=== PATIENT | female | born 1970 | race Caucasian/White ===

== ENCOUNTER 2020-10-03 08:55 | Day surgery (SDC) | payer BC ==
--- NOTE | 2020-09-28 13:18 | RAD REPORT ---
EXAM DESCRIPTION: Bishnu Finnegan (2 Views)09/28/2020 12:59 pm CLINICAL HISTORY: Preop for genitourinary surgery COMPARISON: None FINDINGS: The lungs appear clear of acute infiltrate. The heart is normal size IMPRESSION: No acute abnormalities displayed
[2020-09-28 13:32] LABS: Protime INR 1.07
[2020-09-28 13:33] LABS: Absolute Lymphocytes (CBC) 2.1 K/uL (0.7-4.9); Basophils % 0.9 % (0-1.3); Hematocrit 39.5 % (36.0-45.0); Lymphocytes % 22.5 % (15.3-44.8); MPV 7.5 fL (7.6-11.3); RBC Red Blood Cell Count 4.43 M/uL (3.86-4.86)
[2020-09-28 13:34] LABS: Potassium 3.8 mmol/L (3.5-5.1)
--- NOTE | 2020-10-01 07:50 | EKG ---
Test Date: 2020-09-28 Test Time: 12:27:18 Recyclable Products Sorter: TERENCE MEASUREMENT RESULTS: Intervals: Rate: 70 MT: 160 QRSD: 68 QT: 388 QTc: 419 Grimes: P: 72 MT: 160 QRS: 59 T: 65 INTERPRETIVE STATEMENTS: Normal sinus rhythm Normal ECG No previous ECG available for comparison Electronically Signed On 10-01-20 07:42:06 CANE WEIGHER HELPER by Tariq Barrios
[~2020-10-03 08:55] MED LIST: AMPICILLIN SODIUM 2 GM in NA CHLORIDE 0.9% 100 ML IVPB ONE; Gentamicin Inj 160 MG in NA CHLORIDE 0.9% 100 ML IV ONE
[2020-10-03 09:28] LABS: Specific Gravity 1.015 (1.005-1.030)
[2020-10-03] MEDS ORDERED: Ringers Lactate 1,000 ML IV ONE (09:46)
[2020-10-03] MEDS ORDERED: propofoL 200 MG/20 ML VIAL IV ONE (10:24)
[2020-10-03] MEDS ORDERED: dexAMETHasone 10 MG/ML VIAL ONE (10:25)
[2020-10-03] MEDS ORDERED: KETOROLAC 30 MG/ML INJ ONE (10:25)
[2020-10-03] MEDS ORDERED: MIDAZOLAM HCL 2 MG/2 ML INJ ONE (10:25)
[2020-10-03] MEDS ORDERED: LIDOCAINE 1% MPF 5 ML VIAL ONE (10:25)
[2020-10-03] MEDS ORDERED: FENTANYL CITR 100 MCG/2 ML ONE (10:25)
[2020-10-03] MEDS ORDERED: ONDANSETRON 4 MG/2 ML VIAL ONE (10:26)
[2020-10-03] MEDS ORDERED: ROCURONIUM 50 MG/5 ML VIAL IV ONE (12:50)
[2020-10-03] MEDS ORDERED: Mastisol Adhesive Liq ONE (13:21)
[2020-10-03] MEDS ORDERED: NEOSTIGMINE 1 MG/ML -5 ML ONE (13:26)
[2020-10-03] MEDS ORDERED: GLYCOPYRROLATE 0.2 MG/ML SYR ONE (13:26)
--- NOTE | 2020-10-03 13:35 | RAD REPORT ---
EXAM DESCRIPTION: RAD - Urethrocystogrphy Retrograde - 10/03/2020 1:18 pm CLINICAL HISTORY: STENT PLACEMENT RIGHT COMPARISON: No comparisons FINDINGS: Total fluoro time: 0.07 minutes
[2020-10-03] MEDS ORDERED: HYDROCODONE/APAP 5/325 MG TAB PO ONE (14:35)
[2020-10-03] MEDS ORDERED: HYDROCODONE/APAP 5/325 MG TAB ONE (14:47)
[2020-10-03 15:20] VITALS: BP 110/68; TEMP 97.6; O2SAT 99
--- NOTE | 2020-10-04 01:16 | OP ---
Surgeon: IRMA IBRAHIM Preoperative Diagnosis: 5 mm proximal right ureteral calculus. Postoperative Diagnosis: 5 mm proximal right ureteral calculus. Principal Procedure: Cystoscopy, right retrograde pyelography, right ureteroscopy and laser lithotri psy, right ureteral stent exchange. Indication For Procedure: Ms. Randall was seen at an outside facility with renal colic and underw ent placement of a right ureteral stent. The stone was observed to be proximal in her ureter on a CT scan. She presented for evaluation and management which was determined in the office to be a need f or ureteroscopy and laser lithotripsy. Procedure Note: The patient was consented in the preoperative holding area before being transferred to the operative suite where general anesthesia was induced. She was given ampicillin and gentamicin , IV antimicrobial prophylaxis, and pneumo boots were provided for DVT prophylaxis. She was placed i n the lithotomy position, padded and secured to the table appropriately. Her genitalia were prepped using Hibiclens, and she was draped in standard fashion. The case was begun using a 22-Anguillan rigid cystoscope to traverse the urethra and into the bladder with ease. There were significant intravesic al debris which was evacuated from the bladder. I then irrigated the bladder gently to remove any ad ditional debris and I verified the preoperative urine culture from 5 days ago was negative for infect ion. After decompressing the bladder, the stent was visualized and was without significant encrustat ion or sign of colonization with a fibrinous coating suggestive of active infection. As such, I used a flexible grasper to deliver a stent outside the meatus and passed a Sensor Wire up the stent and i nto the collecting system with a coil observed fluoroscopically there on the right side. Over the in dwelling Sensor Wire, I placed a dual-lumen catheter into the mid proximal ureter with ease, and a re trograde pyelogram was then performed. Right retrograde pyelography: Using a 70:30 mixture of Omnipaque and saline, contrast was injected v ia the second lumen of the dual-lumen catheter and did delineate the renal pelvis and the calyces wit h ease. The proximal ureter was also easily delineated as the tip of the catheter was in the mid pro ximal ureter. I thus passed a noodls guidewire via the second lumen of the dual-lumen catheter and it did coil alongside the indwelling safety wire within the upper pole of the kidney. I then removed the dual-lumen access catheter and placed a flexible ureteroscope into the upper pole with ease. I then carefully surveyed each of the calyces of the kidney in depth until I encountered the prior 5 mm proximal ureteral calculus, now displaced into the renal pelvis. Then, using a 200 nm laser fiber a t a power setting of 0.8 J and 15 Hz, the stone was quickly fragmented into dust smaller than 1 mm an d approximately the size of the laser fiber. Once this was done, I then surveyed the remainder of th e renal pelvis for any residual stone fragments and then backed the ureteroscope into the proximal ur eter. I then surveyed from the proximal down the mid and into the distal ureter before the ureterosc ope was completely extracted. With no additional stone fragments noted, the ureteroscopy portion of the case was discontinued and I replaced the 22-Anguillan rigid cystoscope by backloading it over the in dwelling safety wire. Over the indwelling safety wire, I passed a 6-Anguillan x 24 cm double-J right ur eteral stent into upper pole of the kidney with a coil observed fluoroscopically there and an additio nal coil cystoscopically within the bladder. I then decompressed her bladder fluid and urine, and th e patient was then awakened from general anesthesia. She was then transferred to a stretcher and to the recovery room in good condition. Complications: None. Discharge Disposition: The patient will be given a prescription for Vicodin 5 mg tablets for pain an d recommended to obtain Pyridium/Azo for dysuria. Followup should be established in the Urology Clin ic within the next week for tethered ureteral stent removal with nurse practitioner, Faith Levin. CHAYO/SHANNAN Voice ID: [id number] Report ID: [id number]
== END 2020-10-03 15:12 | disposition home or self-care (01) ==
LOC: OR 08:55
PROVIDERS: ATTEND Urology
PROC: 0T768DZ Dilation of Right Ureter with Intraluminal Device, Via Natural or Artificial Opening Endoscopic (ICD-10-PCS; 2020-10-03)
PROC: 0TF68ZZ Fragmentation in Right Ureter, Via Natural or Artificial Opening Endoscopic (ICD-10-PCS; principal; 2020-10-03 10:15)
DX: N20.1 Calculus of ureter (principal); F17.210 Nicotine dependence, cigarettes, uncomplicated; Z20.828 Contact with and (suspected) exposure to other viral communicable diseases; K21.9 Gastro-esophageal reflux disease without esophagitis
CPT/HCPCS: 36415; 51610; 71046; 74450; 80048; 81025; 85025; 85610; 87086; 87088; 93005; J0290; J1100; J1580; J2250; J2405; J2704; J2710; J3010; J7120

== ENCOUNTER 2020-12-14 18:29 | Emergency (ER) | payer BC ==
--- OUTSIDE RECORDS SUMMARY | 2020-12-14 18:35 | XMS REPORT ---
:1970 Author Organization [facility] Address [address] [place] [address] Care Team Providers Name Role Phone Bry Longoria Unavailable [phone] PROBLEMS Type Condition ICD9-CM Code [id number] Onset Condition SNOMED Code No dominick Code Dates Status Problem Kidney stone N20.0 Active 56727428 ALLERGIES No Known Allergies ENCOUNTERS from 1970 to 2020-11-21 Encounter Location Date Provider Diagnosis [facility] [address] [facility] Sep, Brygiovanny Longoria Kidney s tone N20.0 Specialty/Urology [address] [place] [id number] IMMUNIZATIONS No Information SOCIAL HISTORY Tobacco Use: Social History Observation Description Date Details (start date - stop date) Current Smoker Sex Assigned At : Social History Observation Description Sex Assigned At Unknown Alcohol Screen Question Answer Notes Did you have a drink containing alcohol in the past year? No Points 0 Interpretation Negative Tobacco Use/Smoking Question Answer Notes Are you a current smoker How many cigarettes a day do you smoke? 6-10 How often do you smoke cigarettes? every day REASON FOR REFERRAL No Information VITAL SIGNS Height 67 in Sep, Weight 153.6 lbs Sep, Temperature 98.3 degrees Fahrenheit Sep, BMI 24.05 kg/m2 Sep, Oximetry 99 % Sep, Blood pressure systolic 134 mm Hg Sep, Blood pressure diastolic 77 mm Hg Sep, MEDICATIONS Medication SIG (Take, Route, Notes Start Date End Date Status Frequency, Duration) Gabapentin 300 MG 1 capsule Orally Once a Active day Quetiapine Fumarate 100 MG 1 tablet at bedtime Active Orally Once a day Kimball 5-325 MG 1 tablet as needed Ac tive Orally every 6 hrs for 3 days Levothyroxine Sodium 125 MCG 1 tablet in the morning Active on an empty stomach Orally Once a day Oxybutynin Chloride 5 MG 1 tablet Orally Twice a Active day for 30 day(s) Pantoprazole Sodium 40 MG 1 tablet Orally Once a Active day PROCEDURES No Information RESULTS No Results REASON FOR VISIT KIDNEY STONE/STENT/KIDNEY INFECTION MEDICAL (GENERAL) HISTORY Type Description Date Medical History herniated disc Medical History cysto on ovaries, fibroids Medical History kidney stone Medical History UTI Surgical History CSF Leak Surgical History Shoulder surgery 2015 Surgical History Plantar Fascitis 2019 Surgical History Rt kidney stent Goals Section No Information Health Concerns No Information MEDICAL EQUIPMENT No Information MENTAL STATUS No Information FUNCTIONAL STATUS No Information ASSESSMENTS Encounter Date Diagnosis Assessment Notes Treatment Notes Treatm ent Clinical Notes Sep, Kidney stone Reviewed CT, no (ICD-10 - N20.0) renal stone s seen on imaging CD given back to patient teri wall day of surgery Reviewed ER records, WBC up to 15, had IV abx , returned to 7 Urine reflex RIght ureteroscopy,la ser lithotripsy, ri ght stent placement scheduled Will f/u post o p accordingly PLAN OF TREATMENT Medication Medication Name Sig Start Date Stop Date Kimball 5-325 MG 1 tablet as needed Orally every 6 hrs for 3 days Oxybutynin Chloride 5 MG 1 tablet Orally Twice a day for 30 day(s) Treatment Notes Assessment Notes Clinical Notes Kidney stone Reviewed CT, no case l stones seen on imagingCD given back to patient teri alexis day of surgeryReviewed ER records, WBC up to 15, had IV abx, ret urned to 7Urine reflexRIght ureteroscopy,laser lithotripsy, right s tent placement scheduledWill f/u post op accordingly Treatment Notes Test Name Order Date URINALYSIS, COMPLETE W/REFLEX TO CULTURE 2020-11-21 URINALYSIS AUTO W/O SCOPE ([id number]) 2020-11-21 PVR 2020-11-21 Next Appt Details prn Reason:post op Follow Up:prnpost op Insurance Providers Payer Name Payer Payer Insured Name Patient Coverage Covera ge End Address Phone Relationship to Start Date Juan e Insured [employer] [phone] Tere Grimes self and Blue [id number] [facility] [phone]
--- OUTSIDE RECORDS SUMMARY | 2020-12-14 18:35 | XMS REPORT | Continuity of Care Document ---
:1970 Author Organization [facility] t Address [address] [place] [address] Care Team Providers Name Role Phone Unavailable Unavailable Unavailable Payers Payer Name Policy Type Policy Number Effective Date Expiration Date S ource Problems This patient has no known problems. Allergies, Adverse Reactions, Alerts Allergy Allergy Status Severity Reaction(s) Onset Inactive Treating Comm ents Source Name Type Date Date Clinician No Known DA Active [facility] Allergie 12-11 Aramis s 00:00: d 00 [facility] Medications This patient has no known medications. Procedures This patient has no known procedures. Encounters Start End Encounter Admission Attending Care Care Encounter Source Date/Time Date/Time Type Type Clinicians Facility Department ID 2020-10-06 2020-10-06 Outpatient [facility] [id number] [facility] 2020-09-25 2020-09-25 Outpatient [facility] [id number] [facility] Results Test Description Test Time Test Comments Results Result Comments Source COVID 19 INHOUSE AG 2020-12-11 15:20:00 Test Item Value Reference Range Interpretation Comme nts COVID 19 INHOUSE AG (test code = NEGATIVE Negative Per nutrition and dietetics instructor, negative [id number]) results should be treated aspresumptive a nd, if inconsistent wi th clinical signs andsymptoms or necessary for patient managem ent, should betested with a n alternative molecular assay . Negative resultsdo not p reclude SARS-CoV-2 infection and s hould not be usedas the sole basis for patient management deci sions. Negative results should be considered in the context of apatient's recent exposures, hist ory, presence of clinicalsigns a nd symptoms consistent with COVID-19. HCG SERUM [id number] 15:00:00 Test Item Value Reference Range Interpretation Comments HCG SERUM QUAL (test SERUM NEGATIVE SCREEN NEGATIVE code = HCGQL) URINALYSIS [id number] 14:57:00 Test Item Value Reference Range Interpretation Comments UA GLUCOSE DIPSTICK (test NEGATIVE mg/dL NEG code = DGLUU) UA BILIRUBIN DIPSTICK (test NEGATIVE mg/dL NEG code = BILU) UA KETONE DIPSTICK (test NEGATIVE mg/dL NEG code = KETU) UA SPECIFIC GRAVITY (test >=1.030 SG 1.005-1.030 A code = SGU) UA BLOOD DIPSTICK (test 2+ mg/DL NEG A code = MABEL) UA PH DIPSTICK (test code = 6.0 pH UNITS 5.0-7.0 KAMALJIT) UA PROTEIN DIPSTICK (test NEGATIVE mg/dL NEG code = PROU) UA UROBILINIOGEN DIPSTICK 0.2 mg/dL <2.0 (test code = URO) UA NITRITE DIPSTICK (test NEGATIVE SCREEN NEG code = KRISTEN) UA LEUKOCYTE ESTERASE NEGATIVE Leuk/mcL NEGATIVE DIPSTICK (test code = LEUU) Urine Specimen Type: Clean CatchCBC W/AUTO [id number] 14:49:00 Test Item Value Reference Range Interpretation Comments WHITE BLOOD CELL (test code = 8.9 K/mm3 3.5-11.0 N WBC) RED BLOOD CELL (test code = 4.56 M/mm3 4.70-6.10 L RBC) HEMOGLOBIN (test code = HGB) 13.8 G/DL 10.4-14.9 N HEMATOCRIT (test code = HCT) 42.2 % 31.5-44.1 N MEAN CELL VOLUME (test code = 92.5 Fl 84.5-98.6 N MCV) MEAN CELL HGB (test code = MCH) 30.3 pg 27.0-34.2 N MEAN CELL HGB CONCETRATION 32.7 G/DL 31.5-34.0 N (test code = MCHC) RED CELL DISTRIBUTION WIDTH 12.8 SD 11.5-14.5 N (test code = RDW) PLATELET COUNT (test code = 321 K/mm3 150-450 N PLT) MEAN PLATELET VOLUME (test code 10.00 fL 7.0-10.5 N = MPV) NEUTROPHIL % (test code = NT%) 69.5 % 40-76 N IMMATURE GRANULOCYTE % (test 0.2 % 0.0-5.0 N code = IG%) LYMPHOCYTE % (test code = LY%) 21.0 % 20.5-51.1 N MONOCYTE % (test code = MO%) 7.8 % 1.7-9.3 N EOSINOPHIL % (test code = EO%) 1.2 % 0.0-6.0 N BASOPHIL % (test code = BA%) 0.3 % 0.0-2.0 N NUCLEATED RBC % (test code = 0.0 /100WBC% 0.0-1.0 N NRBC%) NEUTROPHIL # (test code = NT#) 6.2 K/mm3 1.8-7.6 N IMMATURE GRANULOCYTE # (test 0.02 x10 3/uL 0.00-0.03 N code = IG#) LYMPHOCYTE # (test code = LY#) 1.9 K/mm3 0.6-3.2 N MONOCYTE # (test code = MO#) 0.7 K/mm3 0.3-1.1 N EOSINOPHIL # (test code = EO#) 0.1 K/mm3 0.0-0.4 N BASOPHIL # (test code = BA#) 0.0 K/mm3 0.0-0.1 N NUCLEATED RBC # (test code = 0.0 K/mm3 0.0-0.1 N NRBC#) MANUAL DIFF REQUIRED (test code NO DIFF/SCN CRITERIA = MDIFF)
--- OUTSIDE RECORDS SUMMARY | 2020-12-14 18:35 | XMS REPORT ---
:1970 Author Organization [facility] Address [address] [place] [id number] Care Team Providers Name Role Phone Faith Levin Unavailable [phone] PROBLEMS Type Condition ICD9-CM Code [id number] Onset Condition SNOMED Code No dominick Code Dates Status Problem Kidney stone N20.0 Active [id number] ALLERGIES No Known Allergies ENCOUNTERS from 1970 to 2020-10-09 Encounter Location Date Provider Diagnosis [facility] [address] Sep, Faithserg Leivn Ureterolithi asis N20.1 Specialty/Urology [address] and Kidney stone N20.0 [place] [address] IMMUNIZATIONS No Information SOCIAL HISTORY Tobacco Use: [...] VITAL SIGNS Height 67 in Sep, Weight 154.8 lbs Sep, Temperature 98 degrees Fahrenheit Sep, BMI 24.24 kg/m2 Sep, Oximetry 98 % Sep, Blood pressure systolic 135 mm Hg Sep, Blood pressure diastolic 64 mm Hg Sep, MEDICATIONS Medication SIG (Take, Route, Notes Start Date End Date Status Frequency, Duration) Gabapentin 300 MG 1 capsule Orally Once a Active day Quetiapine Fumarate 100 MG 1 tablet at bedtime Active Orally Once a day [place] 5-325 MG 1 tablet as needed Ac [...] Information RESULTS No Results REASON FOR VISIT stent removal MEDICAL (GENERAL) HISTORY Type Description Date Medical [...] Treatment Notes Treatm ent Clinical Notes Sep, Ureterolithiasis (ICD-10 - N20.1) Sep, Kidney stone (ICD-10 - Revie wed CT, no N20.0) renal stones seen on imaging CD given back to patient teri bring day of surgery Reviewed ER records, WBC up to 15, had IV abx, returned t o 7 RIght ureteroscopy,la s er lithotripsy, right stent placement to be removed this visit Ok to stop oxbuytinin afte r stent removal, pain meds prn i f needed. F/u in 3 mo or sooner prn, consider WINDY PLAN OF TREATMENT Medication Medication Name Sig Start Date Stop Date [place] 5-325 MG 1 tablet as needed Orally every 6 hrs for 3 days Oxybutynin Chloride 5 MG 1 tablet Orally Twice a day for 30 day(s) Treatment Notes Assessment Notes Clinical Notes Kidney stone Reviewed CT, no case l stones seen on imagingCD given back to patient teri juanpablo g day of surgeryReviewed ER records, WBC up to 15, had IV abx, ret urned to 7RIght ureteroscopy,laser lithotripsy, right s tent placement to be removed this visitOk to stop oxbuytinin afte r stent removal, pain meds prn if needed.F/u in 3 mo or sooner pr n, consider WINDY Next Appt Details 3 Months Reason:stones Follow Up:3 Monthsstones Insurance Providers Payer Name Payer Payer Insured Name Patient Coverage Covera End Address Phone Relationship to Start Date Juan e Insured [employer] [phone] Tere Randall and Tho [id number] [address] [place] [id number]
--- NOTE | 2020-12-14 19:01 | ER ---
Nurse's Notes [facility] Name: Celeste Randall Age: 50 yrs Sex: Female : 1970 Arrival Date: 12/14/2020 Time: 18:33 Bed Waiting Private MD: Maria Victoria Bingham K Diagnosis: Presentation: 12/14 18:58 Chief complaint: Patient states: While at the lobby to call pt to triage room, pt ca1 states, "Had hysterectomy today and the pain pills my doctor prescribed has run out from [facility]. My doctor just called me right now and said I don't have to see you guys (ER) and he is sending [facility] now [facility] ED Course: 18:33 Patient arrived in ED. as 18:34 Maria Victoria Bingham MD is Private Physician. as Administered Medications: No medications were administered Outcome: 19:01 Patient left the ED. ca1 Signatures: Arabella Mijares Cheryl, RN RN ca1
== END 2020-12-14 19:01 | disposition left against medical advice (07) ==
LOC: ER 18:29
DX: G89.18 Other acute postprocedural pain (principal); Z53.21 Procedure and treatment not carried out due to patient leaving prior to being seen by health care provider
CPT/HCPCS: 99281